=== PATIENT | male | born 1945 | race Caucasian/White ===

== ENCOUNTER → 2025-03-03 09:52 | Outpatient (CLI) | payer MEDICARE, SELFPAY ==
--- NOTE | 2025-03-03 09:54 | DI.RAD.S_ITS ---
PROCEDURE: XR CHEST 2V INDICATIONS: Cough TECHNIQUE: 2 views of the chest were acquired. COMPARISON: None. FINDINGS: Surgical changes and devices: None. Lungs and pleura: Bilateral interstitial opacities and perihilar patchy airspace opacities. Trace bilateral pleural effusions. Mild peribronchial wall thickening. No pneumothorax. Mediastinum: Mediastinal contours are normal. Heart size is normal. Bones and chest wall: No suspicious bony abnormalities. Soft tissues appear unremarkable. IMPRESSION: Bilateral interstitial and perihilar patchy airspace opacities are concerning for mild pulmonary edema versus multifocal pneumonia with trace bilateral pleural effusions. Dictated by: Tomas Preston M.D. on 03/03/2025 at 10:38 Approved by: Tomas Preston M.D. on 03/03/2025 at 10:39
== END ==
PROVIDERS: Referring Provider Nurse Practitioner Family; Visit Provider Nurse Practitioner Family
DX: R05.9 Cough, unspecified (principal)
CPT/HCPCS: 71046